=== PATIENT | female | born 1980 | race Caucasian/White ===

== ENCOUNTER → 2016-04-29 | Outpatient (CLI) | payer OTHER ==
[~2016-04-29] MED LIST: AUGM875T PO; BUTO1CRE PV; IBUP-232 PO; LEVO13.5 I-UTERINE; OXYC1TAB63 PO; PREN1CAP7 PO; SENN1TAB PO
== END ==
LOC: HPND 10:01
PROVIDERS: ATTEND Obstetrics & Gynecology Obstetrics
DX: O26.842 Uterine size-date discrepancy, second trimester (principal); O35.8XX0 Maternal care for other (suspected) fetal abnormality and damage, not applicable or unspecified
CPT/HCPCS: 76816

== ENCOUNTER 2016-08-15 00:48 | Emergency (ER) | payer OTHER ==
[~2016-08-15 00:48] MED LIST changes: -AUGM875T PO; -BUTO1CRE PV; -IBUP-232 PO; -LEVO13.5 I-UTERINE; -OXYC1TAB63 PO; -SENN1TAB PO
[2016-08-15 01:57] VITALS: PULSE 85
[2016-08-15] MEDS ORDERED: TERBUTALINE INJ 1 MG/ML AMP SQ ONE (02:00)
--- NOTE | 2016-08-15 02:38 | PD ---
HPI Chief Complaint contractions Date Seen: Aug 15, 2016 Travel History International Travel<30 Days: No Contact w/Intl Traveler<30Days: No Known Affected Area: No History of Present Illness HPI 36 yo @ 39w0d. care with [facility]. Patient scheduled for repeat this week. Presents with c/o irregular contractions over the past several days. No LOF, VB. +FM History Past Medical History Narrative Medical tattoo obesity Obstetric History Obstetric History 2009 Past Surgical History Narrative Surgical Family History Family History: Negative Social History Alcohol Use: No Tobacco Use: No Substance Abuse: No Allergies-Medications (Allergen,Severity, Reaction): Coded Allergies: Bees (Verified Allergy, Mild, Hives, 08/11/16) Home Meds Active Scripts W/O Vit A W/ Fe Fumar (Citranatal [place])27-1-260 Mg Cap1 Cap PO DAILY #30 CAP Ref 11 Prov:Emily Bravo 07/07/16 Review of Systems General / Constitutional: No: Fever, Chills Eyes: No: Blurred Vision, Visual changes HENT: No: Headaches, Lightheadedness Cardiovascular: No: Chest Pain or Discomfort, Palpitations Respiratory: No: Cough, Short of Breath Gastrointestinal: Abdominal Pain (occasional contractions), No: Nausea, Vomiting, Diarrhea Genitourinary: No: Urgency, Frequency, Dysuria, Discharge, Vaginal Bleeding Musculoskeletal: No: Limited ROM, Weakness Skin: No Rash, No Itching, No Lesions Neurologic: No: Focal Abnormalities, Coordination Problem Physical Exam Vital Signs Date Time Temp Pulse Resp B/P Pulse Ox O2 Delivery O2 Flow Rate FiO2 08/15/16 01:57 98.6 85 18 122/74 Narrative GENERAL: Well-nourished, well-developed patient. NAD SKIN: Warm and dry. HEAD: Normocephalic and atraumatic. EYES: No scleral icterus. No injection or drainage. ENT: No nasal drainage noted. Mucous membranes pink. Airway patent. NECK: No JVD. CARDIOVASCULAR: Regular rate RESPIRATORY: No accessory muscle use. ABDOMEN/GI: Abdomen soft, non-tender, no rebound, no guarding Gravid GENITOURINARY: External Genitalia: intact and normal in appearance SVE 1/50/-2 intact TOCO: irregular uc, irritability. Spaced out. FHT's: Category: I Baseline: 135 Reactive: +accelerations Variability: mod Decels: [-] EXTREMITIES: No cyanosis, trace LE edema. BACK: Normal ROM NEUROLOGICAL: Awake and alert. Motor and sensory grossly within normal limits. Normal speech. Data Data Vital Signs Reviewed: Yes Orders Vital Signs (Adult) .ON ADMISSION (08/15/16 01:51) ^ Labor Status (08/15/16 01:51) ^ Non Stress Test (08/15/16 01:51) Terbutaline Inj (Brethine Inj) (08/15/16 02:00) MDM Narrative Course / MDM 39 weeks Irregular UC without labor offered Terbutaline for irregular UC, patient accepted. UC space out/resolving CAT I FHT Plan D/c home with precautions or change in UC. F/u for scheduled Diagnosis Diagnosis: Primary Impression: False labor after 37 weeks of gestation without delivery Additional Impressions: History of delivery, antepartum 39 weeks gestation of Disposition: DISCHARGE HOME Condition: Good Vicki Cheng MD Aug 15, 2016 02:37
[2016-08-30] MEDS ORDERED: BUTO1CRE PV (13:23)
[2016-08-30] MEDS ORDERED: AUGM875T PO (13:23)
[2016-09-30] MEDS ORDERED: LEVO13.5 I-UTERINE (09:13)
== END 2016-08-15 02:40 | disposition home or self-care (01) ==
LOC: HOBED 00:48
DX: O47.1 False labor at or after 37 completed weeks of gestation (principal); Z3A.39 39 weeks gestation of pregnancy
CPT/HCPCS: 59025; 96372

== ENCOUNTER 2016-08-16 08:09 | Inpatient (IN) | payer OTHER ==
[~2016-08-16] VITALS: Ht 154.9 cm; Wt 93.9 kg
[2016-08-16 08:33] VITALS: BP 121/71; PULSE 65
--- NOTE | 2016-08-16 08:33 | HHI.HP ---
HPI Chief Complaint repeat CS Date Seen: Aug 16, 2016 Travel History International Travel<30 Days: No Contact w/Intl Traveler<30Days: No History of Present Illness HPI Ms. Freed is a at 39 1/7 weeks ([facility] 08/22/2016) who presents for repeat CS. Patient reports that she is doing well at this time. She reports she is having some intermittent contractions which are painful; contractions started Monday and gradually increased in frequency but are still irregular. Patient also reports 2 episodes of vaginal spotting since Monday. Patient denies loss of vaginal fluid. Patient reports normal movement. Patient does not report headache, shortness of breath, chest pain, dysuria, vaginal lesions, or or abdominal pain other than contractions. Patient reports L thigh numbness for the past month; normal movement of legs. Per review of records, no abnormal results appreciated. Prior US with [facility] 08/22/2016. GBS negative. Para: 1 : 2 History Past Medical History Medical History: Denies Significant Hx Obstetric History Obstetric History CS at 39 weeks in 2009 for breech presentation Past Surgical History Narrative Surgical CS at 39 weeks in 2009 for breech presentation Family History Family History: Negative Social History Alcohol Use: No Tobacco Use: No Substance Abuse: No Allergies-Medications (Allergen,Severity, Reaction): Coded Allergies: Bees (Verified Allergy, Mild, Hives, 08/11/16) Home Meds Active Scripts W/O Vit A W/ Fe Fumar (Citranatal [place])27-1-260 Mg Cap1 Cap PO DAILY #30 CAP Ref 11 Prov:Emily Bravo 07/07/16 Review of Systems General / Constitutional: No: Fever Eyes: No: Blurred Vision HENT: No: Headaches Cardiovascular: No: Chest Pain or Discomfort Respiratory: No: Short of Breath Gastrointestinal: Abdominal Pain (contractions), No: Nausea, Vomiting Genitourinary: No: Dysuria Physical Exam BP 121/71 HR 65 Narrative GENERAL: Well-nourished, well-developed patient. SKIN: Warm and dry. HEAD: Normocephalic and atraumatic. EYES: No scleral icterus. No injection or drainage. ENT: No nasal drainage noted. Mucous membranes pink. Airway patent. CARDIOVASCULAR: Regular rate and rhythm without murmurs. Normal perfusion RESPIRATORY: CTAB, normal rate ABDOMEN/GI: Abdomen soft, non-tender, bowel sounds present, no rebound, no guarding Gravid EXTREMITIES: No cyanosis or edema. NEUROLOGICAL: Awake and alert. Motor and sensory function grossly within normal limits. GENITOURINARY: External Genitalia: intact and normal in appearance Cervix: Dilatation: 1 Effacement: 50% Station: -2 Presentation: V Membranes: Intact Uterine Contractions: q2-3 min FHT's: Category: 1 Baseline: 150 Reactive: Y Variability: Mod Decels: None Assessment/Plan Problem List: (1) 39 weeks gestation of (2) History of delivery, antepartum Assessment and Plan at 39 1/7 weeks ([facility] 08/22/2016) who presents for repeat CS -Cat 1 rhythm -Cervix 1/50%/-2 -Contractions q2-3 min -PSH CS for breech presentation Plan: -Admit for repeat CS -Start IVF -Obtain CBC, blood typing, UA -Perioperative antibiotics- Ancef 2gm Kev Pendleton MD R2 Aug 16, 2016 08:33
[2016-08-16 08:48] LABS: AUTOMATED NEUTROPHIL # 10.4 TH/MM3 (1.8-7.7); BASOPHIL # 0.1 TH/MM3 (0-0.2); BASOPHIL % 0.6 % (0.0-2.0); EOSINOPHIL % 0.3 % (0.0-4.0); HEMATOCRIT 35.3 % (35.0-46.0); HEMO FLAGS DIFF FINAL; LYMPH % 12.4 % (9.0-44.0); LYMPHOCYTE # 1.6 TH/MM3 (1.0-4.8); MEAN CELL VOLUME 90.7 FL (80.0-100.0); MEAN CORPUSCULAR HEMOGLOBIN 30.9 PG (27.0-34.0); MONO % 5.1 % (0.0-8.0); NEUT % 81.6 % (16.0-70.0); PLATELET COUNT 210 TH/MM3 (150-450); RED BLOOD COUNT 3.88 MIL/MM3 (4.00-5.30); RED CELL DISTRIBUTION WIDTH 14.2 % (11.6-17.2); WHITE BLOOD COUNT 12.7 TH/MM3 (4.0-11.0)
[2016-08-16] MEDS ORDERED: LACTATED RINGER'S 1000 ML INJ 1,000 ML IV ONE ×2 (09:00→13:09)
[2016-08-16] MEDS ORDERED: ceFAZolin 2 GM PREMIX 50 ML IV SCH (09:30)
[2016-08-16 09:45] LABS: BACTERIA, URINE RARE /hpf; BLOOD, URINE TRACE (NEG); COMMENT (UR) CULT NOT INDICATED; CULTURE IF INDICATED CULT NOT INDICATED; GLUCOSE,URINE NEG (NEG); KETONE, URINE NEG (NEG); MUCUS URINE FEW /lpf (OCC); NITRITE,URINE NEG (NEG); PH, URINE 7.5 (5.0-8.5); SQUAMOUS EPITHELIAL CELL URINE 3 /hpf (0-5); URINE COLOR YELLOW (YELLW/STRAW)
[2016-08-16] MEDS: LACTATED RINGER'S 1000 ML INJ 1,000 ML IV SCH ×3 (09:57→22:20)
[2016-08-16] MEDS ORDERED: CITRIC ACID-SODIUM CITRATE LIQ 30 ML UDC PO SCH (10:00)
[2016-08-16] MEDS ORDERED: OXYTOCIN 10 UNIT/ML AMP ONE (10:45)
[2016-08-16] MEDS ORDERED: EPIDURAL-NALOXONE HCL 0.4 MG/ML AMP IV PRN (10:50)
[2016-08-16] MEDS ORDERED: EPIDURAL-NO SYSTEMIC NARCOTICS PRN (10:50)
[2016-08-16] MEDS ORDERED: EPIDURAL-DIPHENHYDRAMINE HCL 50 MG/ML VIAL IV PUSH PRN (10:50)
[2016-08-16] MEDS ORDERED: EPIDURAL-DO NOT ADMINISTER ANTICOAGULANTS PRN (10:50)
[2016-08-16] MEDS ORDERED: EPIDURAL-DIPHENHYDRAMINE HCL 50 MG CAP PO PRN (10:50)
[2016-08-16] MEDS ORDERED: OXYTOCIN 30 UNITS-500ML PREMIX 500 ML IV ONE (12:30)
[2016-08-16] MEDS ORDERED: SODIUM CHLORIDE 0.9% FLUSH 10 ML FLUSH IV FLUSH PRN (12:30)
[2016-08-16] MEDS ORDERED: ACETAMINOPHEN 325 MG TAB PO PRN (12:30)
[2016-08-16] MEDS ORDERED: ZOLPIDEM TARTRATE 5 MG TAB PO PRN (12:30)
[2016-08-16] MEDS ORDERED: ONDANSETRON HCL 4 MG/2 ML VIAL IV PUSH PRN (12:30)
[2016-08-16] MEDS ORDERED: SIMETHICONE 80 MG CHEWABLE TAB PO PRN (12:30)
[2016-08-16] MEDS ORDERED: MORPHINE SULFATE PF 5 MG/10 ML VIAL ONE (12:32)
[2016-08-16 12:35] VITALS: BP_SYST 123; BP_SYST 132; BP_DIAS 71; PULSE 77; RESP 18; TEMP 98.4; O2SAT 99
[2016-08-16 12:45] VITALS: BP 119/66; PULSE 70; RESP 18; O2SAT 99
[2016-08-16] MEDS ORDERED: KETOROLAC TROMETHAMINE 60 MG/2 ML (IM) VIAL IM PRN (13:00)
[2016-08-16 13:03] VITALS: BP 123/61; PULSE 60; RESP 18; O2SAT 98
[2016-08-16] MEDS ORDERED: ePHEDrine/NS 50 MG/5 ML SYR IV ONE (13:09)
[2016-08-16] MEDS ORDERED: ONDANSETRON HCL 4 MG/2 ML VIAL IV PUSH ONE (13:09)
[2016-08-16] MEDS ORDERED: OXYTOCIN 30 UNITS-500ML PREMIX 500 ML ONE (13:19)
[2016-08-16 13:20] VITALS: BP 116/63; PULSE 65; RESP 17; TEMP 98.1; O2SAT 99
[2016-08-16 15:52] VITALS: BP 109/62; PULSE 70; RESP 20; TEMP 98.3
[2016-08-16] MEDS: SODIUM CHLORIDE 0.9% FLUSH 10 ML FLUSH IV FLUSH SCH (20:10)
[2016-08-16] MEDS ORDERED: OXYTOCIN 30 UNITS-500ML PREMIX 500 ML IV PRN (22:30)
[2016-08-17] MEDS: IBUPROFEN 600 MG TAB PO PRN ×3 (02:13→18:20)
[2016-08-17] MEDS: LACTATED RINGER'S 1000 ML INJ 1,000 ML IV SCH ×4 (03:22→17:28)
[2016-08-17] MEDS: DOCUSATE SODIUM 50 MG/SENNA 8.6 MG TAB PO PRN ×2 (06:20→21:29)
[2016-08-17] MEDS: oxyCODONE/ACETAMINOPHEN 5 MG/325 MG TAB PO PRN ×4 (06:21→21:29)
--- NOTE | 2016-08-17 07:22 | HHI.OB ---
Subjective Post Operative Day: 1 Remarks Postoperative day number 1. AFVSS overnight. Pain controlled with medications. Incision not draining. Decreased lochia. Denies dysuria. No breast tenderness. She is feeding the baby via formula. Appetite good. No nausea or vomiting. Denies flatus. No bowel movement. Ambulating well. Denies calf pain , shortness of breath, or cough. Otherwise, she is doing well this morning and has no other complaints. Objective Vitals/I&O Vital Signs Date Time Temp Pulse Resp B/P Pulse Ox O2 Delivery O2 Flow Rate FiO2 08/16/16 15:52 98.3 70 20 109/62 08/16/16 13:20 116/63 08/16/16 13:20 98.1 65 17 99 08/16/16 13:03 60 123/61 08/16/16 13:03 18 98 08/16/16 12:45 119/66 08/16/16 12:45 70 18 99 08/16/16 12:35 98.4 77 18 123/71 99 08/16/16 12:35 132/71 08/16/16 08:33 65 121/71 Result Diagram: 08/16/16 0830 Objective Remarks GENERAL: Well-nourished, well-developed patient. CARDIOVASCULAR: Regular rate and rhythm without murmurs, gallops, or rubs. RESPIRATORY: Breath sounds equal bilaterally. No accessory muscle use. ABDOMEN/GI: Abdomen soft, non-tender, bowel sounds present. Incision: Clean, dry and intact. Fundus: Firm, non-tender at umbilicus. GENITOURINARY: Light to moderate bleeding. EXTREMITIES: No cyanosis or edema, non-tender, without signs of DVT. Medications and IVs Current Medications Medications (Trade) Dose Ordered Sig/Frida Route Start Time Stop Time Status Last Admin Lactated Ringer's 1,000 ml @ 150 mls/hr Q6H40M IV 08/16/16 09:00 08/16/16 09:57 (Lr 1000 ml Inj) 1,000 ml @ 100 mls/hr Q10H IV 08/16/16 17:22 08/17/16 13:21 08/16/16 18:27 (NS Flush) 2 ml BID IV FLUSH 08/16/16 21:00 (NS Flush) 2 ml UNSCH PRN IV FLUSH 08/16/16 12:30 (Mylicon Chew) 80 mg QID PRN PO 08/16/16 12:30 (Tylenol) 650 mg Q6H PRN PO 08/16/16 12:30 (Motrin) 600 mg Q6H PRN PO 08/16/16 12:30 08/17/16 02:13 (Toradol Inj) 30 mg Q6H PRN IM 08/16/16 13:00 08/17/16 12:59 (Percocet 5-325 Mg) 1 tab Q4H PRN PO 08/16/16 12:30 08/17/16 06:21 (Percocet 5-325 Mg) 2 tab Q4H PRN PO 08/16/16 12:30 (Miley-Colace) 2 tab Q12H PRN PO 08/16/16 12:30 08/17/16 06:20 (Ambien) 5 mg HS PRN PO 08/16/16 12:30 (M-M-R Ii Inj) 0.5 ml ONCE ONCE SQ 08/17/16 16:00 08/17/16 16:01 (Boostrix Inj) 0.5 ml ONCE ONCE IM 08/17/16 16:00 08/17/16 16:01 (Zofran Inj) 4 mg Q6H PRN IV PUSH 08/16/16 12:30 Miscellaneous Information NO SYSTEMIC NARCOTICS TO BE GIVEN FO... UNSCH PRN .XX 08/16/16 10:50 08/17/16 10:49 (Narcan Inj) 0.4 mg UNSCH PRN IV 08/16/16 10:50 08/17/16 10:49 (Benadryl Inj) 25 mg Q6H PRN IV PUSH 08/16/16 10:50 08/17/16 10:49 (Benadryl) 50 mg Q6H PRN PO 08/16/16 10:50 08/17/16 10:49 Miscellaneous Information ALL NURSING DEPARTMENTS UNSCH PRN .XX 08/16/16 10:50 08/17/16 10:49 Assessment/Plan Problem List: (1) 39 weeks gestation of (2) History of delivery, antepartum Assessment and Plan 36y/o female who is POD#1 s/p CXN. -Continue routine care. -Percocet and Motrin PRN pain. -Encouraged OOB. Advised pelvic rest for 6 wks. Will need a f/u appt. in 1 wk for incision check. -Re: ctrl, she is undecided -D/c in 1-2 more days. dw OB attending Shaka Abel MD R1 Aug 17, 2016 07:22
[2016-08-17] MEDS: SODIUM CHLORIDE 0.9% FLUSH 10 ML FLUSH IV FLUSH SCH (09:00)
[2016-08-17 10:13] LABS: AUTOMATED NEUTROPHIL # 9.2 TH/MM3 (1.8-7.7); BASOPHIL % 0.3 % (0.0-2.0); EOSINOPHIL # 0.1 TH/MM3 (0-0.4); EOSINOPHIL % 0.5 % (0.0-4.0); HEMATOCRIT 30.9 % (35.0-46.0); HEMO FLAGS DIFF FINAL; LYMPH % 13.5 % (9.0-44.0); LYMPHOCYTE # 1.6 TH/MM3 (1.0-4.8); MEAN CELL VOLUME 92.7 FL (80.0-100.0); MEAN CORPUSCULAR HEMOGLOBIN 30.5 PG (27.0-34.0); MEAN CORPUSCULAR HGB CONC 32.9 % (32.0-36.0); MONO % 5.4 % (0.0-8.0); NEUT % 80.3 % (16.0-70.0); PLATELET COUNT 173 TH/MM3 (150-450); RED BLOOD COUNT 3.33 MIL/MM3 (4.00-5.30); RED CELL DISTRIBUTION WIDTH 14.3 % (11.6-17.2); WHITE BLOOD COUNT 11.5 TH/MM3 (4.0-11.0)
--- NOTE | 2016-08-17 11:10 | MP ---
cc: WILIAM KELLEY MD DATE OF SURGERY: 08/16/2016 PREOPERATIVE DIAGNOSIS: Previous section, for repeat section at term. POSTOPERATIVE DIAGNOSIS: Previous section, for repeat section at term. OPERATION: Repeat low transverse section. SURGEON Wiliam Kelley MD SPOKE MAKER Dr. Bonilla, [facility] ANESTHESIA Spinal. PREOP NOTE The patient is a 36-year-old , G2, P1, previous section, now at 39-weeks and requests repeat section. PROCEDURE The patient was taken to the operating room and placed in the supine position. After adequate spinal anesthesia was administered she was prepped and draped for abdominal surgery. Previous Pfannenstiel incision was excised out. The incision was carried to the fascia sharply. The fascia was ____ laterally and then reflected off the rectus muscle. The peritoneal cavity was entered sharply and the incision was extended superiorly and inferiorly. The bladder blade was placed in the lower edge of the incision and the visceral peritoneum reflected off the lower uterine segment and placed on the bladder blade. The transverse hysterotomy was made and extended bluntly bilaterally. Clear fluid was noted at that time, copious fluid, and then a female was delivered at 11:21 a.m. Apgars were 8 and 9. Weight of the baby was 3760 grams. There were no complications with delivery. Cord blood was obtained. The placenta was manually extracted. The uterus was exteriorized and hysterotomy was closed with running layer of 0-Chromic followed by imbricating suture of the same. Hemostasis was achieved with a stick tie. The bladder was reapproximated using running 2-0 Vicryl. The uterus was elevated, blood was suctioned from the cul-de-sac gutters. The ovaries and tubes were noted to be normal. The uterus was placed in the peritoneal cavity. The parietal peritoneum was closed in running layer of 2-0 Vicryl. The muscle was reapproximated with several stick ties of Chromic. The fascia was closed in running layer of 0-Vicryl. The subcutaneous tissue was reapproximated with 3-0 Plain gut running suture. The skin was closed with 3-0 Monocryl subcuticular stitch. Pressure dressing was applied. ESTIMATED BLOOD LOSS 500 ccs. COMPLICATIONS There were no complications. COUNTS Sponge and needle count were correct x 2. CONDITION The patient went to recovery in stable condition. MD SALO Ellison/ROMEO /12:29 PM /10:51 AM
[2016-08-17] MEDS ORDERED: DIPHTH/TETANUS/ACEL PERTUSSIS (BOOSTER) 0.5 ML VIAL/PFS IM ONE (16:00)
[2016-08-17] MEDS ORDERED: MEASLES, MUMPS, RUBELLA VACCINE 0.5 ML VIAL SQ ONE (16:00)
[2016-08-18] MEDS: IBUPROFEN 600 MG TAB PO PRN ×2 (03:50→11:54)
[2016-08-18] MEDS: oxyCODONE/ACETAMINOPHEN 5 MG/325 MG TAB PO PRN ×3 (03:51→11:55)
[2016-08-18 08:28] VITALS: BP 129/71; PULSE 76; RESP 16; TEMP 98.5
--- NOTE | 2016-08-18 09:14 | HHI.OB ---
Subjective Post Operative Day: 2 Remarks 36 yo who is POD 2 from repeat CS (08/16 at 1121). Ms. Freed was afebrile with stable VS overnight. Patient reports that she is doing well at this time; she continues to report abdominal pain but that it is improved with pain medications. Patient ambulating normally. Patient passing gas normally. Normal urination. Patient does not report shortness of breath, leg swelling, or other symptoms. (Kev Pendleton MD R2) Objective Vitals/I&O Vital Signs Date Time Temp Pulse Resp B/P Pulse Ox O2 Delivery O2 Flow Rate FiO2 08/18/16 08:28 98.5 76 16 129/71 08/17/16 16:50 18 08/17/16 13:15 19 (Kev Pendleton MD R2) Result Diagram: 08/17/16 0937 Objective Remarks GENERAL: Well-nourished, well-developed patient. CARDIOVASCULAR: Regular rate and rhythm without murmurs. RESPIRATORY: CTAB, normal rate ABDOMEN/GI: Abdomen soft, non-tender, bowel sounds present. Incision: Clean, dry and intact. Fundus: Firm, non-tender at umbilicus. GENITOURINARY: Light bleeding. EXTREMITIES: No cyanosis or edema, non-tender, without signs of DVT. Medications and IVs Current Medications Medications (Trade) Dose Ordered Sig/Frida Route Start Time Stop Time Status Last Admin (Lr 1000 ml Inj) 1,000 ml @ 150 mls/hr Q6H40M IV 08/16/16 09:00 08/16/16 09:57 (NS Flush) 2 ml BID IV FLUSH 08/16/16 21:00 (NS Flush) 2 ml UNSCH PRN IV FLUSH 08/16/16 12:30 (Mylicon Chew) 80 mg QID PRN PO 08/16/16 12:30 (Tylenol) 650 mg Q6H PRN PO 08/16/16 12:30 (Motrin) 600 mg Q6H PRN PO 08/16/16 12:30 08/18/16 03:50 (Percocet 5-325 Mg) 1 tab Q4H PRN PO 08/16/16 12:30 08/17/16 16:00 (Percocet 5-325 Mg) 2 tab Q4H PRN PO 08/16/16 12:30 08/18/16 07:50 (Miley-Colace) 2 tab Q12H PRN PO 08/16/16 12:30 08/17/16 21:29 (Ambien) 5 mg HS PRN PO 08/16/16 12:30 (Zofran Inj) 4 mg Q6H PRN IV PUSH 08/16/16 12:30 (Kev Pendleton MD R2) Assessment/Plan Problem List: (1) 39 weeks gestation of (2) History of delivery, antepartum Assessment and Plan 36y/o female who is POD#2 s/p CXN. -Continue routine care. -Percocet and Motrin PRN pain. -Encourage OOB -Continue to monitor VS, vaginal bleeding -Continue stool softener -Advised pelvic rest for 6 wks -Will need a f/u appt. in 1 wk for incision check. -Re: ctrl, she is undecided -D/c in 1-2 more days. (Kev Pendleton MD R2) Attending Attestation POD #2 s/p repeat Doing well. Awaiting to see if baby will be discharged today Possible d/c this afternoon. Will need f/u one week for incision check. Patient seen and examined. D/w Dr. Pendleton and Dr. Abel (Vicki Cheng MD) Kev Pendleton MD R2 Aug 18, 2016 09:14 Vicki Cheng MD Aug 18, 2016 09:44
[2016-08-18 09:25] VITALS: RESP 18
[2016-08-18] MEDS ORDERED: OXYC1TAB63 PO (11:41)
[2016-08-18] MEDS ORDERED: SENN1TAB PO (11:41)
[2016-08-18] MEDS ORDERED: IBUP-232 PO (11:41)
--- NOTE | 2016-08-18 11:42 | HHI.DCPOC ---
Discharge Care Plan Diagnosis: (1) care and examination Report Symptoms to Your Doctor -Temperate above 100.5 degrees -Redness, of incision or excessive or foul smelling drainage -Unusual pain or calf pain -Increased vaginal bleeding -Painful or difficulty urinating -Feelings of extreme sadness or anxiety after 2 weeks Goals to Promote Your Health * To prevent worsening of your condition and complications * To maintain your health at the optimal level Directions to Meet Your Goals Take your medications as prescribed Follow your dietary instruction Follow activity as directed Ensure plenty of rest for recovery Drink fluids for hydration Keep your appointments as scheduled Take your immunizations and boosters as scheduled If your symptoms worsen call your PCP, if no PCP go to Urgent Care Center or Emergency Room Smoking is Dangerous to Your Health. Avoid second hand smoke Call the 24-hour crisis hotline for domestic abuse at Kev Pendleton MD R2 Aug 18, 2016 11:42
[2016-08-18] MEDS: DOCUSATE SODIUM 50 MG/SENNA 8.6 MG TAB PO PRN (11:55)
[2016-08-30] MEDS ORDERED: BUTO1CRE PV (13:23)
[2016-08-30] MEDS ORDERED: AUGM875T PO (13:23)
[2016-09-30] MEDS ORDERED: LEVO13.5 I-UTERINE (09:13)
== END 2016-08-18 14:40 | disposition home or self-care (01) | DRG 766 ==
LOC: H2EB 08:09 → H1EA 13:43
PROVIDERS: ADMIT Obstetrics & Gynecology Maternal & Fetal Medicine; ATTEND Obstetrics & Gynecology Maternal & Fetal Medicine
PROC: 10D00Z1 Extraction of Products of Conception, Low, Open Approach (ICD-10-PCS; principal; 2016-08-16)
DX: O34.211 Maternal care for low transverse scar from previous cesarean delivery (principal); O32.1XX0 Maternal care for breech presentation, not applicable or unspecified; Z37.0 Single live birth; Z3A.39 39 weeks gestation of pregnancy
CPT/HCPCS: 59025; 81001; 85025; 86850; 86900; 86901; 96372; J0690; J2274; J2405; J2590; J3010; J7120